=== PATIENT | female | born 1985 | race Caucasian/White ===

== ENCOUNTER 2019-07-14 17:06 | Outpatient (CLI) | payer BC, OTHER, SELFPAY ==
[2019-07-14 17:44] LABS: Basophils Absolute Auto 0.1 K/mm3 (0.0-0.1); Basophils Percent Auto 0.6 % (0.2-1.2); Eosinophils Absolute Auto 0.3 K/mm3 (0-0.3); Eosinophils Percent Auto 2.5 % (0-4.4); Hematocrit 37.5 % (37.0-47.0); Hemoglobin 12.3 g/dL (12.0-15.0); Immature Granulocyte Absolute 0.04 K/mm3 (0.00-0.031); Immature Granulocyte Percent A 0.4 % (0-0.5); Lymphocytes Absolute Auto 2.25 K/mm3 (0.9-3.2); Lymphocytes Percent Auto 21.9 % (18.3-44.2); Mean Corpuscular HGB Conc 32.8 g/dl (32-36); Mean Corpuscular Hemoglobin 30.4 pg (26-34); Mean Corpuscular Volume 92.8 fl (80-100); Mean Platelet Volume 10.9 fl (7.4-10.4); Monocytes Absolute Auto 0.7 K/mm3 (0.1-0.6); Monocytes Percent Auto 6.9 % (2.6-8.5); Neutrophils Percent Auto 67.7 % (45.5-73.1); Platelet Count Result 291 k/mm3 (150-375); Red Blood Count 4.04 M/mm3 (4.2-5.4); Red Cell Distribution Width 12.4 % (11.5-14.5); White Blood Count 10.3 K/mm3 (4.5-10.0)
[2019-07-14 18:36] LABS: HIV 1/2 Ab P24 Ag Result Negative (Negative)
[2019-07-14 18:38] LABS: Hepatitis B Surface Antigen Negative (Negative); Rubella IgG Antibody 83.4 IU/ML
[2019-07-15 13:36] LABS: Rapid Plasma Reagin Non-Reactive (NonReactive)
== END 2019-07-14 17:07 | disposition home or self-care (01) ==
PROVIDERS: PCP Family Medicine; Visit Provider Obstetrics & Gynecology
DX: Z34.90 Encounter for supervision of normal pregnancy, unspecified, unspecified trimester (principal); Z3A.00 Weeks of gestation of pregnancy not specified
CPT/HCPCS: 36415; 81220; 85025; 86592; 86703; 86762; 86850; 86900; 86901; 87340; G0432

== ENCOUNTER 2020-01-24 05:50 | Inpatient (IN) | payer BC, OTHER, SELFPAY ==
[2020-01-24] VITALS (85 sets, daily range): BP systolic 95–144; BP diastolic 56–116; PULSE 76–209; RESP 16; TEMP 36.4–36.9; O2SAT 98–100; BMI 26.6
[2020-01-24 07:12] LABS: Basophils Absolute Auto 0.1 K/mm3 (0.0-0.1); Basophils Percent Auto 0.4 % (0.2-1.2); Eosinophils Absolute Auto 0.1 K/mm3 (0-0.3); Eosinophils Percent Auto 0.7 % (0-4.4); Hematocrit 32.4 % (37.0-47.0); Hemoglobin 10.8 g/dL (12.0-15.0); Immature Granulocyte Absolute 0.08 K/mm3 (0.00-0.031); Immature Granulocyte Percent A 0.7 % (0-0.5); Lymphocytes Absolute Auto 1.99 K/mm3 (0.9-3.2); Lymphocytes Percent Auto 17.3 % (18.3-44.2); Mean Corpuscular HGB Conc 33.3 g/dl (32-36); Mean Corpuscular Hemoglobin 30.3 pg (26-34); Monocytes Absolute Auto 0.8 K/mm3 (0.1-0.6); Monocytes Percent Auto 6.9 % (2.6-8.5); Neutrophils Absolute Auto 8.5 K/mm3 (1.3-6.7); Platelet Count Result 317 k/mm3 (150-375); Red Blood Count 3.56 M/mm3 (4.2-5.4); Red Cell Distribution Width 12.4 % (11.5-14.5); White Blood Count 11.5 K/mm3 (4.5-10.0)
--- NOTE | 2020-01-24 07:28 | LDADM ---
This patient, Isabel Mccain, was admitted to Labor/Delivery/Recovery 109 on 01/24/20 at 05:50. Plans for labor, pain management and were discussed with patient. Patient/family oriented to hospital policies and general routines including ID bracelet, bed and alarms, visiting hours, pain management, procedures, bathroom and other care routines, personal items, smoking policy, room service/diet and guest tray routines, security routines, and visiting hours. Patient/Family are encouraged to report perceived risks to care and to ask questions if they do not understand what they are told or what they should do. See OBIX for further documentation.
[2020-01-24] MEDS: LACTATED RINGERS 1,000 ML 125 ML IV CONT ×2 (07:40→09:12)
[2020-01-24] MEDS: OXYTOCIN 30 UNITS/NS 500 ML 30 UNITS/500 ML BAG IV CONT (07:41)
--- NOTE | 2020-01-24 08:30 | WPDOBADMIT ---
Obstetrics - Admit Note Admission Note: record reviewed. Additions to the history and/or subsequent changes in the physical findings follow. 34 y/o at 38 2/7 weeks here for induction of labor secondary to oligohydramnios on ultrasound exam yesterday. Baby with duplicated right renal collecting system. GBS neg. otherwise uncomplicated. No leakage of fluid. No vaginal bleeding. AVSS NST reactive TOCO: irregular contractions ABD soft, nontender, gravid, vertex EXT nontender Cervix 2-3/50/-2. AROM with clear fluid. A: IUP at term with oligohydramnios, here for induction of labor. P: Reviewed risks / benefits associated with induction of labor. She understands and elects to proceed. Oxytocin. Anticipate .
--- NOTE | 2020-01-24 08:57 | P.PNAN_ITS ---
Anes - Eval Pre Procedure Procedure: Labor Epidural Date/Time: 01/24/20 08:57 Surgeon: Matt Preop Diagnosis: Labor Pain Pre Op Diagnosis: Induction of Labor Patient Data Age: 34 Gender: F Height: 5 ft 3 in Weight: 68.2 kg Last Vital Signs Temp 36.6 C 01/24/20 07:02 Pulse 80 01/24/20 08:45 BP 127/78 01/24/20 08:45 Allergies Allergy/AdvReac Type Severity Reaction Status Date / Time No Known Allergies Allergy Verified 01/06/20 12:35 Home Medications Medication Instructions Recorded Confirmed Type PNV cmb#95-ferrous fumarate-FA 1 tablet PO DAILY 01/06/20 01/06/20 History [] Laboratory Tests 01/24/20 01/24/20 01/24/20 06:56 06:56 06:56 WBC 11.5 K/mm3 H K/mm3 (4.5-10.0) RBC 3.56 M/mm3 L M/mm3 (4.2-5.4) Hgb 10.8 g/dL L g/dL (12.0-15.0) Hct 32.4 % L % (37.0-47.0) MCV 91.0 fl fl (80-100) MCH 30.3 pg pg (26-34) MCHC 33.3 g/dl g/dl (32-36) RDW 12.4 % % (11.5-14.5) Plt Count 317 k/mm3 k/mm3 (150-375) MPV 10.0 fl fl (7.4-10.4) Immature Gran % (Auto) 0.7 % H % (0-0.5) Neut % (Auto) 74.0 % H % (45.5-73.1) Lymph % (Auto) 17.3 % L % (18.3-44.2) [place] % (Auto) 6.9 % % (2.6-8.5) Eos % (Auto) 0.7 % % (0-4.4) Baso % (Auto) 0.4 % % (0.2-1.2) Lymph # (Auto) 1.99 K/mm3 K/mm3 (0.9-3.2) [place] # (Auto) 0.8 K/mm3 H K/mm3 (0.1-0.6) Eos # (Auto) 0.1 K/mm3 K/mm3 (0-0.3) Baso # (Auto) 0.1 K/mm3 K/mm3 (0.0-0.1) Abs Immat Gran (auto) 0.08 K/mm3 H K/mm3 (0.00-0.031) Absolute Neuts (auto) 8.5 K/mm3 H K/mm3 (1.3-6.7) Absolute Nucleated RBC 0.0 K/mm3 K/mm3 (0.0-0.012) Nucleated RBC % 0.0 % % (0.0-0.2) RPR Pending Blood Type O Positive Antibody Screen Negative : gestational age (ADRIANA 02/05/20) Patient hx anesthesia problems: none Family hx anesthesia problems: none PMFSH Family History Family History Other Unknown family medical history Social History Social History Smoking status: Never smoker Second hand tobacco smoke exposure: No Alcohol intake: current Substance use: never Spiritual care concerns: No Exam Day of Procedure 01/24/20 08:57 Patient weight: normal Heart: regular rate and rhythm Lungs: normal air movement Airway: Mallampati scale class II Neurological: alert and oriented
--- NOTE | 2020-01-24 12:18 | PM.OBPRVD ---
OB - Delivery Note Procedure Delivery date: 01/24/20 Procedure: Induction of labor with . Oligohydramnios. Induction method: AROM and per pitocin protocol Delivery monitor: external FHT and external uterine Route of delivery: Laceration description: Perineal - 2nd Degree Delivery repair: vicryl (3-0) Specimen: Yes (cord blood) Estimated blood loss (mL): 55 Anesthesia type: Epidural Disposition: PACU Complications: None Narrative: 34 y/o at 38 2/7 weeks gestation who presented to the hospital for induction of labor. Oxytocin was administered intravenously. Amniotomy was performed with return of clear fluid. She received an epidural for pain control. Her labor progressed and her cervix dilated completely. She pushed with good effort and delivered the infant's head to the perineum, followed by the body. The nose and mouth were bulb suctioned. After a delay, the cord was clamped and cut. The was handed off the field. Cord blood was collected. The placenta delivered spontaneously and was grossly normal in appearance. The usual 3 vessel cord was noted. A second degree midline perineal laceration was sustained. This was reapproximated using 3 0 Vicryl in the usual layered fashion. Excellent hemostasis resulted as did excellent reapproximation of the normal anatomy. Needle and instrument counts were correct. The patient was taken to recovery room in stable condition. The went to the nursery in stable condition. I was present and scrubbed for the entire delivery. [place] Baby Date of : 01/24/20 Time of : 12:58 Weeks of gestation at delivery: 38 gender: Female Weight (pounds): 6 Weight (ounces): 8 presentation: vertex position: Left Occiput Anterior Placenta delivery description: Spontaneous and Normal Configuration cord vessel description: 3 Vessels score one minute: 9 score five minutes: 9
--- NOTE | 2020-01-24 12:21 | P.DS_ITS ---
DS: Admitting Diagnosis Admitting Diagnosis Admitting Diagnosis: Induction of Labor Oligohydramnios DS: Discharge Diagnosis Discharge Diagnosis (1) (normal spontaneous vaginal delivery): Code(s): O80 - Encounter for full-term uncomplicated delivery Status: Acute OB - DS: Summary OB Procedures : None OB Procedures Intrapartum: Spontaneous Vag Delivery OB Procedures: : None DS: Data Data Completed and Pending Labs on day of discharge: Labs from last 24 hours 01/24/20 01/24/20 01/24/20 06:56 06:56 06:56 WBC 11.5 H RBC 3.56 L Hgb 10.8 L Hct 32.4 L MCV 91.0 MCH 30.3 MCHC 33.3 RDW 12.4 Plt Count 317 MPV 10.0 Immature Gran % (Auto) 0.7 H Neut % (Auto) 74.0 H Lymph % (Auto) 17.3 L [place] % (Auto) 6.9 Eos % (Auto) 0.7 Baso % (Auto) 0.4 Lymph # (Auto) 1.99 [place] # (Auto) 0.8 H Eos # (Auto) 0.1 Baso # (Auto) 0.1 Abs Immat Gran (auto) 0.08 H Absolute Neuts (auto) 8.5 H Absolute Nucleated RBC 0.0 Nucleated RBC % 0.0 RPR Pending Blood Type O Positive Antibody Screen Negative Discharge Plan Discharge Attending physician on discharge: Kamari Gutierrez Discharging Clinician: Kamari Gutierrez Patient Disposition: Home, Self-Care Activity: pelvic rest Diet: regular Discharge Instructions: Call or return if temperature above 100.4? F, increased abdominal pain, increased vaginal bleeding or any new problems. Stand Alone Forms: General Discharge Information Follow-up/Referrals: Kamari Gutierrez MD [Physician] - (6 weeks) Discharge Medications: New ibuprofen 600 mg tablet 600 mg PO Q6H PRN (Reason: cramps) Qty: 30 RF: 0 No Action PNV cmb#95-ferrous fumarate-FA [] 28 mg iron- 800 mcg Tablet 1 tablet PO DAILY RF: 0 Date of admission: 01/24/20 05:50 Primary Care Provider: Samantha Nguyễn Admitting Provider: Kamari Gutierrez Attending physician on admission: Kamari Gutierrez
[2020-01-24] MEDS: OXYTOCIN 30 UNITS/NS 500 ML 30 UNITS/500 ML BAG 125 UNITS IV CONT (12:32)
[2020-01-24] MEDS: BENZOCAINE 20% AER SPR (*SP) 56 GM CAN 1 SPRAY TOPICAL (14:49)
[2020-01-24] MEDS: WITCH HAZEL 40 PADS 1 PAD TOPICAL (14:49)
[2020-01-24] MEDS: DOCUSATE SODIUM 100 MG CAPSULE PO (18:56)
[2020-01-25] MEDS: IBUPROFEN 600 MG TABLET PO (01:54)
[2020-01-25 06:03] LABS: Hematocrit 32.5 % (37.0-47.0); Hemoglobin 10.7 g/dL (12.0-15.0)
--- NOTE | 2020-01-25 07:22 | WPDANLDPN2 ---
Anes-Prog Note L&D Date/Time: 01/25/20 07:22 Comfortable throughout: labor and delivery Neuraxial method: epidural Epidural/Spinal procedure site: clean & non-tender Neuro status: Neuro function grossly intact. Cardiovascular status: normal Respiratory status: normal Airway patency: baseline Mental status: baseline Post-Op hydration status: normal Vital Signs: Last Vital Signs Temp 36.7 C 01/24/20 18:57 Pulse 77 01/24/20 18:57 Resp 16 01/24/20 18:57 BP 111/64 01/24/20 18:57 Pulse Ox 100 01/24/20 18:57 Pain score (VAS): 0 I/O: Intake & Output 01/24/20 01/24/20 01/25/20 15:59 23:59 07:59 Intake Total 1000 Output Total 128 Balance 872 Post-procedural complaints: none Patient feedback: Patient satisfied with anesthetic care.
[2020-01-25 07:24] LABS: Rapid Plasma Reagin Non-Reactive (NonReactive)
--- NOTE | 2020-01-25 08:41 | PM.OBPNVD ---
OB - PN: Subj Subjective Date/time seen: 01/25/20 08:41 Narrative: Pain OK. Would like to go home. OB - PN: Obj Data Labs CBC & Chem 7: 01/25/20 04:27 Labs: Laboratory Results - last 24 hr 01/24/20 01/25/20 06:56 04:27 Hgb 10.7 L Hct 32.5 L RPR Non-reactive OB - PN A/P Plan Comments: A: PPD#1, doing well. OK to go home. P: Home to f/u 6 weeks. Exam Psych: Other: AVSS ABD soft, nontender, fundus firm EXT nontender
[2020-01-25] MEDS: DOCUSATE SODIUM 100 MG CAPSULE PO (09:26)
[2020-01-25] MEDS: MULTIVIT/MIN/PREN/FOL AC/IRON TABLET 1 TAB PO (09:26)
[2020-01-25 09:52] VITALS: BP 121/85; PULSE 79; RESP 16; TEMP 36.7; O2SAT 100
[2020-01-26 09:05] VITALS: BP 134/80; PULSE 91; RESP 14; TEMP 36.6
== END 2020-01-25 14:45 | disposition home or self-care (01) | DRG 807 ==
LOC: ANHLDR 12:22 → ANHOB2 15:00
PROVIDERS: Admitting Provider Obstetrics & Gynecology; PCP Family Medicine; Visit Provider Obstetrics & Gynecology
DX: O41.03X0 Oligohydramnios, third trimester, not applicable or unspecified (principal); Z37.0 Single live birth; O70.1 Second degree perineal laceration during delivery; Z3A.38 38 weeks gestation of pregnancy
CPT/HCPCS: 36415; 85014; 85018; 85025; 86592; 86850; 86900; 86901; A9270; J2590; J2795; J7120